=== PATIENT | female | born 1990 | race Caucasian/White ===

== ENCOUNTER 2016-11-06 09:12 | Emergency (ER) | payer OTHER ==
[~2016-11-06] VITALS: Ht 175.3 cm; Wt 100.0 kg
[2016-11-06 10:40] LABS: BASOPHIL % 0.4 % (0-2); PLATELET COUNT 281 x10^3mcL (130-400)
[2016-11-06 10:42] LABS: RED CELL DISTRIBUTION WIDTH 15.1 % (11.5-14.5)
[2016-11-06 10:45] LABS: UA SPECIFIC GRAVITY 1.025 (1.005-1.035); microscopic required? YES; urine erythrocyte 2+ (NEGATIVE)
[2016-11-06 10:45] LABS: CALCIUM 8.6 mg/dL (8.5-10.1); CARBON DIOXIDE 29.1 mmol/L (21-32); CHLORIDE SERUM 98 mmol/L (98-107); CREATININE SERUM 0.5 mg/dL (0.6-1.0); GFR1 > 60 mL/min; GLUCOSE SERUM 281 mg/dL (74-106); POTASSIUM SERUM 3.7 mmol/L (3.5-5.1); SODIUM SERUM 132 mmol/L (136-145)
[2016-11-06 10:52] LABS: ALBUMIN 3.1 g/dL (3.4-5.0); ALKALINE PHOSPHATASE 117 U/L (46-116); ALT/SGPT 101 U/L (14-59); AMYLASE 65 U/L (25-115); AST/SGOT 66 U/L (15-37); BILIRUBIN TOTAL 0.9 mg/dL (0.20-1.00); LIPASE 107 IU/L (73-393); TOTAL PROTEIN, SERUM 7.5 g/dL (6.4-8.2)
[2016-11-06 12:12] VITALS: BP 131/71
== END 2016-11-06 12:20 | disposition home or self-care (01) ==
LOC: ED 09:12
PROVIDERS: Emergency Medicine
DX: N39.0 Urinary tract infection, site not specified (principal); N93.9 Abnormal uterine and vaginal bleeding, unspecified; J45.909 Unspecified asthma, uncomplicated; K76.0 Fatty (change of) liver, not elsewhere classified; R73.9 Hyperglycemia, unspecified; E46 Unspecified protein-calorie malnutrition; E66.9 Obesity, unspecified; Z88.5 Allergy status to narcotic agent; Z79.1 Long term (current) use of non-steroidal anti-inflammatories (NSAID)
CPT/HCPCS: 36415; J1885; Q0092